=== PATIENT | male | born 1970 | race Caucasian/White ===

== ENCOUNTER 2018-02-03 13:06 | Day surgery (SDC) | payer OTHER ==
[2018-02-03 13:28] VITALS: BMI 23.3
[2018-02-03] MEDS ORDERED: PROPOFOL 20 ML ONE (15:53)
[2018-02-03] MEDS ORDERED: fentaNYL CITRATE 250 MCG/5 ML VIAL ONE (15:53)
[2018-02-03] MEDS ORDERED: MIDAZOLAM HCL 2 MG/2 ML SINGLE DOSE VIAL ONE (15:53)
[2018-02-03] MEDS ORDERED: ONDANSETRON 4 MG/2 ML VIAL IVPUSH PRN (16:42)
[2018-02-03] MEDS ORDERED: ACETAMINOPHEN 325 MG TABLET (FP) PO PRN (16:42)
--- NOTE | 2018-02-03 16:49 | OP ---
Operative Note - Note: Operative Date: 02/03/18 Pre-Operative Diagnosis: Right kidney stone Operation: Right ESWL Findings: 5mm mid pole Right kidney stone Post-Operative Diagnosis: Same as Pre-op Surgeon: Meek Luciano (not complicated) Anesthesia: Fractional
[2018-02-03] MEDS ORDERED: LACTATED RINGERS SOLUTION 1,000 ML IV SCH (17:00)
[2018-02-03 17:40] VITALS: TEMP 97.9
[2018-02-03 18:31] VITALS: PULSE 53
[2018-02-03 18:55] VITALS: BP 119/77
--- NOTE | 2018-02-03 22:38 | OP ---
DATE OF OPERATION: 02/03/2018 PREOPERATIVE DIAGNOSIS: Right kidney stone. POSTOPERATIVE DIAGNOSIS: Right kidney stone. PROCEDURE: Right extracorporeal shock wave lithotripsy. ATTENDING: Justin Monroy MD ANESTHESIA: Fractional. DESCRIPTION OF OPERATION: Patient was brought in the operating room, placed in supine position on the operating room table. Ultrasonography and fluoroscopy were performed. A 5-mm right mid-pole stone was identified. At this point, anesthesia was administered, and 2500 impulses at 17 joules of power were administered to the stone. Excellent fragmentation was noted. No complications were noted. Patient tolerated the procedure very well. The disposition of the patient was to the recovery room. JUSTIN MONROY M.D. [id number]
== END 2018-02-03 19:35 | disposition home or self-care (01) ==
LOC: JASU-SURG 13:06
PROVIDERS: ATTEND Urology
PROC: 0TF3XZZ Fragmentation in Right Kidney Pelvis, External Approach (ICD-10-PCS; principal; 2018-02-03 14:45)
DX: N20.0 Calculus of kidney (principal)
CPT/HCPCS: 94760